=== PATIENT | female | born 1940 | race Caucasian/White ===

== ENCOUNTER 2024-07-09 19:29 | Emergency (ER) | payer MEDICARE, MEDICAID ==
[2024-07-09] MEDS ORDERED: Ondansetron PF 4 MG/2 ML Vial ONE (20:28)
[2024-07-09 20:32] LABS: #Basophils 0.07 10x3/uL (0.0-0.2); #Eosinophils 0.51 10x3/uL (0.0-0.5); #Monocytes 0.56 10x3/uL (0.0-1.1); %Basophils 1.1 % (0.0-2.0); %Eosinophils 7.9 % (0.0-6.0); %Lymphocytes 19.6 % (18.0-47.0); %Monocytes 8.7 % (0.0-10.0); %Neutrophils 62.2 % (40.0-75.0); Hemoglobin 14.3 g/dL (12.0-15.5); Mean Corpuscular HGB CONC 33.3 g/dL (32.0-36.0); Mean Corpuscular Hemoglobin 31.2 pg (27.0-33.0); Mean Corpuscular Volume 93.7 fL (81.6-98.3); Mean Platelet Volume 10.2 fL (7.4-10.4); Platelet Count 262 10x3/uL (150-450); Red Blood Cell (RBC) Count 4.59 10x6/uL (3.90-5.03); White Blood Cell (WBC) Count 6.4 10x3/uL (3.5-10.5)
[2024-07-09 20:42] LABS: ALT (SGPT) 12 U/L (8-55); AST (SGOT) 15 U/L (5-34); Albumin 3.6 g/dL (3.4-4.8); Alkaline Phosphatase 52 U/L (40-110); Anion Gap 15 mmol/L (10-20); BUN (Urea Nitrogen) 5 mg/dL (9.8-20.1); Bilirubin, Total 0.7 mg/dL (0.2-1.2); Calc. Creatinine Clearance 0 mL/min (70-130); Calcium 9.9 mg/dL (7.8-10.44); Carbon Dioxide 24 mmol/L (23-31); Chloride 101 mmol/L (98-107); Estimated GFR 78; Globulin 4.6 g/dL (2.4-3.5); Glucose 124 mg/dL (83-110); Lipase 68 U/L (8-78); Potassium 3.6 mmol/L (3.5-5.1); Protein, Total 8.2 g/dL (5.8-8.1); Sodium 136 mmol/L (136-145)
[2024-07-09 21:35] LABS: Bilirubin Neg (Negative); Blood, Urine 25 (Negative); Glucose, Urine (Dipstick) Normal (Negative); Ketone, Urine Negative (Negative); Leukocyte 500 (Negative); Nitrite Negative (Negative); Protein, Urine (Dipstick) 30 mg/dl (Neg-Trace); Urobilinogen Normal mg/dL (Less than 2)
[2024-07-09 22:00] LABS: Clarity Slightly Cloudy (Clear)
[2024-07-09 22:01] LABS: Bacteria/HPF None Seen HPF (None Seen); CAUTI Indications for Culture Pelvic or flank pain; RBC/HPF 0-3 HPF (0-3); Squamous Epithelial 0-3 HPF (0-3)
[2024-07-09 22:02] LABS: Urine Culture Reflex Yes Yes
[2024-07-09] MEDS ORDERED: cefTRIAXone (ROCEPHIN) 1 GM VIAL ONE (23:05)
[2024-07-09] MEDS ORDERED: Sterile Water 10 ML ONE (23:07)
== END 2024-07-09 23:26 | disposition home or self-care (01) ==
LOC: CSHERS 19:29
DX: N39.0 Urinary tract infection, site not specified (principal); E11.9 Type 2 diabetes mellitus without complications; I10 Essential (primary) hypertension
CPT/HCPCS: 80053; 81001; 83605; 83690; 85025; 87086; 87400 ×2; J0696; J2405; 96361; 96374; 96375